=== PATIENT | male | born 1975 | race Caucasian/White ===

== ENCOUNTER → 2018-01-12 | Outpatient (CLI) | payer OTHER ==
--- NOTE | 2018-01-12 09:12 | DIAGNOSTIC IMAGING REPORT ---
CHEST 2 VIEWS ROUTINE CLINICAL HISTORY: CHEST PAIN pain COMPARISON STUDY: No previous studies for comparison. FINDINGS: The bones soft tissues and hemidiaphragms are normal. The cardiomediastinal silhouette is normal. The lungs are clear. The pulmonary vasculature is normal. IMPRESSION: Negative chest. The above report was generated using voice recognition software. It may contain grammatical, syntax or spelling errors. Electronically signed by: Codey Andrews M.D. 01/12/2018 9:11 AM Dictated Date/Time: 01/12/2018 8:52 AM
== END | disposition home or self-care (01) ==
LOC: C.RAD1850 08:40
PROVIDERS: ATTEND Family Medicine
DX: R07.9 Chest pain, unspecified (principal)